=== PATIENT | male | born 1975 | race African-American/Black ===

== ENCOUNTER 2020-09-28 06:32 | Emergency (ER) | payer OTHER ==
[~2020-09-28] VITALS: Ht 185.4 cm; Wt 118.0 kg
[2020-09-28 06:37] VITALS: BP 131/62
[2020-09-28] MEDS ORDERED: ONDA4TAB5 PO (07:54)
[2020-09-28] MEDS ORDERED: DOLU50TA PO (07:54)
[2020-09-28] MEDS ORDERED: EMTR1TAB11 PO (07:54)
[2020-09-28 08:27] LABS: HEPATITIS B SURFACE ANTIGEN NEGATIVE
[2020-09-29 05:09] LABS: HIV SCREEN 4G Non Reactive (Non Reactive)
== END 2020-09-28 08:02 | disposition home or self-care (01) ==
LOC: ER 06:32
DX: T15.92XA Foreign body on external eye, part unspecified, left eye, initial encounter (principal); T15.91XA Foreign body on external eye, part unspecified, right eye, initial encounter; Y93.89 Activity, other specified; Y92.238 Other place in hospital as the place of occurrence of the external cause; Y99.0 Civilian activity done for income or pay
CPT/HCPCS: 36415; 87389; 99283